=== PATIENT | male | born 1990 ===

== ENCOUNTER → 2024-09-19 | Outpatient (CLI) | payer OTHER ==
[2024-09-21 11:41] LABS: APTIMA MEDIA TYPE Urine; C. TRACHOMATIS BY TMA Negative (Negative); N. GONORRHOEAE BY TMA Negative (Negative); SPECIMEN SOURCE Urine; T. VAGINALIS BY TMA Negative (Negative)
== END ==
LOC: LAB SHORT 13:31 → LAB 13:31
PROVIDERS: Nurse Practitioner Family
DX: N50.811 Right testicular pain (principal)
CPT/HCPCS: 87491; 87591; 87661